=== PATIENT | male | born 1940 | race Caucasian/White ===

== ENCOUNTER 2019-11-22 18:04 | Emergency (ER) | payer MEDICARE ==
[~2019-11-22] VITALS: Ht 182.9 cm; Wt 121.0 kg
--- NOTE | 2019-11-22 18:20 | PHYS DOC ---
Past History Past Medical History: Diabetes, High Cholesterol, Hypertension Additional Past Medical Histor: obesity Past Surgical History: Other Additional Past Surgical Histo: vasectomy Smoking: Non-smoker Alcohol Use: None Drug Use: None General Adult EDM: Chief Complaint: Sweats, wakness HPI: HPI: Patient is a 79 year old male who presents for evaluation of sudden onset of sweats and weakness about 1 hour prior to arrival. Patient was not doing physical activity at the time. Patient has no known cardiac history but does have history of hypertension, diabetes and high cholesterol. Patient had a rapid heart rate in the 190s on arrival. However he did not feel any palpitations. Patient had worsening sweats shortly after arrival and shortness of air. His initial blood pressure was essentially normal but then dropped to 80s over palp. Patient was moved to the resuscitation room and pads were placed on patient. There was no altered level of consciousness. Patient does not have a history of any prior heart rhythm problems and does not have a pacemaker. Patient does not have a history of prior myocardial infarction. Patient was in moderate distress on arrival Review of Systems: Review of Systems: Constitutional: Denies fever or chills Eyes: Denies change in visual acuity HENT: Denies nasal congestion or sore throat Respiratory: Denies cough but has shortness of breath Cardiovascular: has chest pain, no edema GI: Denies abdominal pain, nausea, vomiting, bloody stools or diarrhea : Denies dysuria Musculoskeletal: Denies back pain or joint pain Integument: Denies rash Neurologic: Denies headache, focal weakness or sensory changes Endocrine: Denies polyuria or polydipsia Lymphatic: Denies swollen glands Psychiatric: Denies depression or anxiety Heart Score: HEART Score for Chest Pain: HEART Score for Chest Pain Response (Comments) Value History Moderately Suspicious 1 ECG Nonspecific Repolarizatio 1 Age > 65 2 Risk Factors >3 Risk Factors or Hx CAD 2 Troponin < Normal Limit 0 Total 6 Risk Factors: Risk Factors: DM, Current or recent (<one month) smoker, HTN, HLP, family history of CAD, obesity. Risk Scores: Score 0 - 3: 2.5% MACE over next 6 weeks - Discharge Home Score 4 - 6: 20.3% MACE over next 6 weeks - Admit for Clinical Observation Score 7 - 10: 72.7% MACE over next 6 weeks - Early Invasive Strategies Physical Exam: PE: Constitutional: Well developed, well nourished, moderate distress, non-well appearance. [] HENT: Normocephalic, atraumatic, bilateral external ears normal, oropharynx moist, no oral exudates, nose normal. [] Eyes: PERRL, EOMI, conjunctiva normal, no discharge. [] Neck: Normal range of motion, no tenderness, supple, no stridor. [] Cardiovascular: Tachycardic rate and rhythm [] Lungs & Thorax: Slight diminished breath sounds bilaterally [] Abdomen: Bowel sounds normal, soft, no tenderness, no masses, no pulsatile masses. [] Skin: Warm, diaphoretic, no erythema, no rash. [] Back: No tenderness, no CVA tenderness. [] Extremities: No tenderness, no cyanosis, no clubbing, ROM intact, no edema. [] Neurologic: Alert and oriented X 3, normal motor function, normal sensory function, no focal deficits noted. [] Psychologic: slight anxious normal, judgement normal, mood normal. [] Current Patient Data: Labs: Laboratory Tests Test 11/22/19 18:35 White Blood Count 9.2 x10^3/uL Red Blood Count 4.77 x10^6/uL Hemoglobin 14.8 g/dL Hematocrit 43.4 % Mean Corpuscular Volume 91 fL Mean Corpuscular Hemoglobin 31 pg Mean Corpuscular Hemoglobin Concent 34 g/dL Red Cell Distribution Width 14.7 % Platelet Count 282 x10^3/uL Neutrophils (%) (Auto) 57 % Lymphocytes (%) (Auto) 31 % Monocytes (%) (Auto) 10 % Eosinophils (%) (Auto) 2 % Basophils (%) (Auto) 1 % Neutrophils # (Auto) 5.2 x10^3uL Lymphocytes # (Auto) 2.8 x10^3/uL Monocytes # (Auto) 0.9 x10^3/uL Eosinophils # (Auto) 0.2 x10^3/uL Basophils # (Auto) 0.0 x10^3/uL Sodium Level 139 mmol/L Potassium Level 3.9 mmol/L Chloride Level 100 mmol/L Carbon Dioxide Level 30 mmol/L Anion Gap 9 Blood Urea Nitrogen 23 mg/dL Creatinine 1.3 mg/dL Estimated GFR (Cockcroft-Gault) 53.5 BUN/Creatinine Ratio 18 Glucose Level 144 mg/dL Calcium Level 9.4 mg/dL Total Bilirubin 0.9 mg/dL Aspartate Amino Transf (AST/SGOT) 23 U/L Alanine Aminotransferase (ALT/SGPT) 28 U/L Alkaline Phosphatase 77 U/L Troponin I Quantitative < 0.017 ng/mL Total Protein 7.4 g/dL Albumin 4.1 g/dL Albumin/Globulin Ratio 1.2 Current Medications Medications (Trade) Dose Ordered Sig/Polly Route PRN Reason Start Time Stop Time Status Last Admin Dose Admin Sodium Chloride (Normal Saline Flush) 10 ml PRN DAILY PRN IV SEE COMMENTS 11/22/19 18:30 Morphine Sulfate (Morphine 4mg Syringe) 4 mg 1X ONCE IV 11/22/19 18:30 11/22/19 18:39 DC Morphine Sulfate (Morphine 4mg Syringe) 4 mg STK-MED ONCE .ROUTE 11/22/19 18:27 11/22/19 18:27 DC Sodium Chloride 1,000 ml @ 1,000 mls/hr 1X ONCE IV 11/22/19 18:45 11/22/19 19:44 Amiodarone HCl 150 mg/Dextrose 103 ml @ 618 mls/hr 1X ONCE IVP 11/22/19 18:45 11/22/19 18:54 DC Aspirin (Aspirin Chewable) 324 mg 1X ONCE PO 11/22/19 18:45 11/22/19 18:46 DC 11/22/19 19:09 EKG: EKG: First EKG read at 1845 shortly after completion showed heart rate of 195 the patient is in ventricular tachycardia. Second EKG done at 1852 after cardioversion showed the patient is now in a sinus rhythm rate 100 with a wide-complex QRS complex 30 EKG done at 1838 shows a more normalized sinus rhythm again with persistent wide QRS, there is a nonspecific intraventricular block present, not STEMI Radiology/Procedures: Radiology/Procedures: [address] [address] IMAGING REPORT Signed PATIENT: UMANG SPRINGER ACCOUNT: [id number] : 1940 LOCATION: ER AGE: 79 SEX: M EXAM STATUS: REG ER ORD. PHYSICIAN: OSIEL EAST DO REASON: short of air PROCEDURE: CHEST AP ONLY Exam: Chest one view INDICATION: Short of air TECHNIQUE: Frontal view of chest Comparisons: None FINDINGS: The cardiomediastinal silhouette and pulmonary vessels are within normal limits. The lung and pleural spaces are clear. IMPRESSION: No acute cardiopulmonary process. Electronically signed by: Miguel Angel Gamble MD (11/22/2019 6:51 PM) [id number] DICTATED AND SIGNED BY: MIGUEL ANGEL GAMBLE MD DATE: 11/22/191850 CC: STORM MAK MD; OSIEL EAST DO ~ [] Course & Med Decision Making: Course & Med Decision Making Pertinent Labs and Imaging studies reviewed. (See chart for details) Laboratory Tests Test 11/22/19 18:35 White Blood Count 9.2 x10^3/uL Red Blood Count 4.77 x10^6/uL Hemoglobin 14.8 g/dL Hematocrit 43.4 % Mean Corpuscular Volume 91 fL Mean Corpuscular Hemoglobin 31 pg Mean Corpuscular Hemoglobin Concent 34 g/dL Red Cell Distribution Width 14.7 % Platelet Count 282 x10^3/uL Neutrophils (%) (Auto) 57 % Lymphocytes (%) (Auto) 31 % Monocytes (%) (Auto) 10 % Eosinophils (%) (Auto) 2 % Basophils (%) (Auto) 1 % Neutrophils # (Auto) 5.2 x10^3uL Lymphocytes # (Auto) 2.8 x10^3/uL Monocytes # (Auto) 0.9 x10^3/uL Eosinophils # (Auto) 0.2 x10^3/uL Basophils # (Auto) 0.0 x10^3/uL Sodium Level 139 mmol/L Potassium Level 3.9 mmol/L Chloride Level 100 mmol/L Carbon Dioxide Level 30 mmol/L Anion Gap 9 Blood Urea Nitrogen 23 mg/dL Creatinine 1.3 mg/dL Estimated GFR (Cockcroft-Gault) 53.5 BUN/Creatinine Ratio 18 Glucose Level 144 mg/dL Calcium Level 9.4 mg/dL Total Bilirubin 0.9 mg/dL Aspartate Amino Transf (AST/SGOT) 23 U/L Alanine Aminotransferase (ALT/SGPT) 28 U/L Alkaline Phosphatase 77 U/L Troponin I Quantitative < 0.017 ng/mL Total Protein 7.4 g/dL Albumin 4.1 g/dL Albumin/Globulin Ratio 1.2 Current Medications Medications (Trade) Dose Ordered Sig/Polly Route PRN Reason Start Time Stop Time Status Last Admin Dose Admin Sodium Chloride (Normal Saline Flush) 10 ml PRN DAILY PRN IV SEE COMMENTS 11/22/19 18:30 Morphine Sulfate (Morphine 4mg Syringe) 4 mg 1X ONCE IV 11/22/19 18:30 11/22/19 18:39 DC Morphine Sulfate (Morphine 4mg Syringe) 4 mg STK-MED ONCE .ROUTE 11/22/19 18:27 11/22/19 18:27 DC Sodium Chloride 1,000 ml @ 1,000 mls/hr 1X ONCE IV 11/22/19 18:45 11/22/19 19:44 Amiodarone HCl 150 mg/Dextrose 103 ml @ 618 mls/hr 1X ONCE IVP 11/22/19 18:45 11/22/19 18:54 DC Aspirin (Aspirin Chewable) 324 mg 1X ONCE PO 11/22/19 18:45 11/22/19 18:46 DC 11/22/19 19:09 1911 Case was discussed with on-call general road foreman Dr. Walker. At his request we will start patient on amiodarone. He would like patient transferred to [facility] and be admitted to the hospitalist service. Patient is to remain n.p.o. at this time. 1919 button sewer hand for hospitalist service at [facility] paged to discuss case 2017 Dr. Carranza, button sewer hand for Hospitalist at [facility] paged again to discuss case. Pt remain's medically stable. He called right back this time and will accept to telemetry bed. Noe Disclaimer: Noe Disclaimer: This electronic medical record was generated, in whole or in part, using a voice recognition dictation system. Departure Departure: Impression: Primary Impression: Ventricular tachycardia Additional Impression: Near syncope Disposition: 05 TRANSFER OTHER ([facility] accepted by Dr. Carranza) Condition: STABLE Referrals: STORM MAK MD (PCP) Justification of Admission: Justification of Admission: Justification of Admission Dx: Yes CHF: Cardiac Arrhythmias Additional Procedures Additional Procedures : Additional Procedures: cardioversion/defib Progress At about 1850 patient was synchronized cardioverted with 100 J. Pads were placed prior to the procedure. Patient had a tachycardia that was running a rate up t o 190s wide-complex (VT). Blood pressure was initially stable with a drop to 80s over palp. After 1 discharge the rhythm improved to a sinus tach rate 101. Patient had multiple premature complexes and pauses prior to the cardioversion procedure Critical Care Time Critical care time was 30 minutes exclusive of procedures. This included care patient, review of chart and lab results, talking to cardiology and accepting hospitalist at [facility]. Patient was started on Cardizem and did receive cardioversion 100 J OSIEL EAST DO Nov 22, 2019 18:20
[2019-11-22] MEDS ORDERED: MORPHINE SULFATE 4 MG/ML DISP.SYRIN. ONE (18:27)
[2019-11-22] MEDS ORDERED: 0.9 % SODIUM CHLORIDE 10 ML DISP.SYRIN. IV PRN (18:30)
[2019-11-22] MEDS ORDERED: MORPHINE SULFATE 4 MG/ML DISP.SYRIN. IV ONE (18:30)
[2019-11-22] MEDS ORDERED: IV NORMAL SALINE 1,000ML 1,000 ML IV ONE (18:45)
[2019-11-22] MEDS ORDERED: AMIODARONE 150 MG in IV DEXTROSE 5% 100 ML IVP ONE (18:45)
[2019-11-22] MEDS ORDERED: ASPIRIN CHEWABLE 81 MG TABLET. PO ONE (18:45)
--- NOTE | 2019-11-22 18:54 | RAD ---
Exam: Chest one view INDICATION: Short of air TECHNIQUE: Frontal view of chest Comparisons: None FINDINGS: The cardiomediastinal silhouette and pulmonary vessels are within normal limits. The lung and pleural spaces are clear. IMPRESSION: No acute cardiopulmonary process. Electronically signed by: Miguel Angel Huynh MD (11/22/2019 6:51 PM) [id number]
[2019-11-22 18:58] LABS: BASO % 1 % (0-3); EOS # 0.2 x10^3/uL (0.0-0.7); EOS % 2 % (0-3); HEMATOCRIT 43.4 % (39.0-53.0); HEMOGLOBIN 14.8 g/dL (13.0-17.5); LYMPH # 2.8 x10^3/uL (1.0-4.8); LYMPH % 31 % (24-48); MEAN CORPUSCULAR HEMOGLOBIN 31 pg (25-35); MEAN CORPUSCULAR HGB CONC 34 g/dL (31-37); MEAN CORPUSCULAR VOLUME 91 fL (79-100); MONO # 0.9 x10^3/uL (0.0-1.1); MONO % 10 % (0-9); NEUT # 5.2 x10^3uL (1.8-7.7); NEUT % 57 % (31-73); PLATELET COUNT 282 x10^3/uL (140-400); RED BLOOD COUNT 4.77 x10^6/uL (4.30-5.70); RED CELL DISTRIBUTION WIDTH 14.7 % (11.5-14.5); WHITE BLOOD COUNT 9.2 x10^3/uL (4.0-11.0)
[2019-11-22 19:02] LABS: CALCIUM 9.4 mg/dL (8.5-10.1); CREATININE 1.3 mg/dL (0.7-1.3); GFR 53.5; POTASSIUM 3.9 mmol/L (3.5-5.1)
[2019-11-22 19:09] LABS: ALBUMIN 4.1 g/dL (3.4-5.0); ALBUMIN/GLOBULIN RATIO 1.2 (1.0-1.7); TOTAL BILIRUBIN 0.9 mg/dL (0.2-1.0); TOTAL PROTEIN 7.4 g/dL (6.4-8.2)
[2019-11-22] MEDS ORDERED: IV DEXTROSE 5% 100 ML IV ONE (19:30)
[2019-11-22] MEDS ORDERED: AMIODARONE 150 MG/3 ML VIAL IVP ONE (19:30)
[2019-11-22 20:36] VITALS: BP 118/77
--- NOTE | 2019-11-25 07:51 | EKG ---
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
--- NOTE | 2019-11-25 08:18 | EKG ---
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
== END 2019-11-22 21:02 | disposition short-term general hospital (02) ==
LOC: ER 18:04
DX: I47.2 Ventricular tachycardia (principal); R55 Syncope and collapse; I10 Essential (primary) hypertension; E11.9 Type 2 diabetes mellitus without complications; E78.00 Pure hypercholesterolemia, unspecified; E66.9 Obesity, unspecified; Z68.36 Body mass index [BMI] 36.0-36.9, adult
CPT/HCPCS: 36415; 71045; 80053; 84484; 85025; 96374; 99285; J0282; 93005; J7030